=== PATIENT | male | born 1995 | race Caucasian/White ===

== ENCOUNTER 2018-02-19 04:43 | Emergency (ER) | payer OTHER ==
[2018-02-19] MEDS ORDERED: KETOROLAC 30 MG/ML 1 ML VIAL IVP STA (04:59)
[2018-02-19] MEDS ORDERED: SODIUM CHLORIDE 0.9% 1,000 ML IV STA (04:59)
[2018-02-19] MEDS ORDERED: MORPHINE SULFATE 2 MG/ML SYRINGE IV STA (04:59)
--- NOTE | 2018-02-19 05:05 | ED ---
General Adult HPI - General Source: patient, RN notes reviewed, old records reviewed Mode of arrival: wheelchair Limitations: no limitations <Dilip Troncoso - Last Filed: 02/19/18 06:42> <Batsheva Lai - Last Filed: 02/19/18 08:38> - General Chief complaint: Abdominal Pain Stated complaint: Kidney stone Time Seen by Provider: 02/19/18 04:53 - History of Present Illness Initial comments: 22-year-old male presents with sudden onset left flank pain and urinary urgency. Patient does have history of kidney stones. Last kidney stone was approximately 3 years prior. Patient denies any preceding symptoms. He was feeling well prior to this sudden onset pain. His had multiple episodes of nausea and vomiting. No changes to his bowels. Denies any abdominal pain. No history of fever or chills. No testicular pain. (Dilip Troncoso) - Related Data Previous Rx's Medication Instructions Recorded HYDROcodone/APAP 5-325MG [[place] 1 tab PO Q8H PRN 3 Days #10 tab 02/19/18 5-325] Metoclopramide [Reglan] 10 mg PO Q8H PRN #10 tab 02/19/18 Allergies Allergy/AdvReac Type Severity Reaction Status Date / Time No Known Allergies Allergy Verified 02/19/18 07:46 Review of Systems ROS Other: All systems not noted in ROS Statement are negative. <Dilip Troncoso - Last Filed: 02/19/18 06:42> ROS Other: All systems not noted in ROS Statement are negative. <Batsheva Lai - Last Filed: 02/19/18 08:38> ROS Statement: Those systems with pertinent positive or pertinent negative responses have been documented in the HPI. Past Medical History Additional Past Medical History / Comment(s): kidney stones History of Any Multi-Drug Resistant Organisms: None Reported Past Surgical History: No Surgical Hx Reported Past Psychological History: No Psychological Hx Reported Smoking Status: Never smoker Past Alcohol Use History: None Reported Past Drug Use History: None Reported <Dilip Troncoso - Last Filed: 02/19/18 06:42> General Exam Limitations: no limitations General appearance: alert, in no apparent distress Head exam: Present: atraumatic, normocephalic Eye exam: Present: normal appearance, PERRL, EOMI ENT exam: Present: normal exam Neck exam: Present: normal inspection. Absent: tenderness, meningismus Respiratory exam: Present: normal lung sounds bilaterally. Absent: respiratory distress, wheezes Cardiovascular Exam: Present: regular rate, normal rhythm GI/Abdominal exam: Present: soft. Absent: distended, tenderness, guarding Extremities exam: Present: normal inspection, normal capillary refill Back exam: Present: CVA tenderness (L) Neurological exam: Present: alert, oriented X3, CN II-XII intact. Absent: motor sensory deficit Psychiatric exam: Present: normal affect Skin exam: Present: warm, dry, intact. Absent: cyanosis, diaphoretic <Dilip Troncoso - Last Filed: 02/19/18 06:42> Course <Dilip Troncoso - Last Filed: 02/19/18 06:42> <Batsheva Lai - Last Filed: 02/19/18 08:38> Vital Signs 02/19/18 02/19/18 02/19/18 04:45 06:08 08:09 Temperature 97 F L 97.4 F L Pulse Rate 85 53 L 79 Respiratory 20 18 18 Rate Blood Pressure 153/82 119/58 112/68 O2 Sat by Pulse [address] of the abdomen reviewed, noticed a millimeter stone obstructive at the ureterovesical junction, patient is complaining about painful turning more pain meds and hopefully he'll pass the stone Reassessed again at 8:30, he feels better him he be gone home on Flomax and 4 mg by mouth daily for next 10 days and [place] 571 tablet 3 times a day as needed #10 but return to the ER if symptoms get worse (Batsheva aLi) - Reevaluation(s) Reevaluation #1: 02/19/18 0700 Patient's care is signed out to Dr. Lai at shift change awaiting CT results. 02/19/18 06:43 (Dilip Troncoso) Medical Decision Making - Lab Data Result diagrams: 02/19/18 05:24 02/19/18 05:24 <Dilip Troncoso - Last Filed: 02/19/18 06:42> - Lab Data Result diagrams: 02/19/18 05:24 07/11/18 05:24 <Brook Laier - Last Filed: 02/19/18 08:38> - Lab Data Lab Results 02/19/18 02/19/18 02/19/18 Range/Units 05:24 05:24 06:24 WBC 6.7 (3.8-10.6) k/uL RBC 4.78 (4.30-5.90) m/uL Hgb 14.2 (13.0-17.5) gm/dL Hct 42.3 (39.0-53.0) % MCV 88.5 (80.0-100.0) fL MCH 29.8 (25.0-35.0) pg MCHC 33.6 (31.0-37.0) g/dL RDW 13.1 (11.5-15.5) % Plt Count 231 (150-450) k/uL Neutrophils % 50 % Lymphocytes % 37 % Monocytes % 7 % Eosinophils % 3 % Basophils % 0 % Neutrophils # 3.3 (1.3-7.7) k/uL Lymphocytes # 2.5 (1.0-4.8) k/uL Monocytes # 0.5 (0-1.0) k/uL Eosinophils # 0.2 (0-0.7) k/uL Basophils # 0.0 (0-0.2) k/uL Sodium 139 (137-145) mmol/L Potassium 3.7 (3.5-5.1) mmol/L Chloride 103 (98-107) mmol/L Carbon Dioxide 25 (22-30) mmol/L Anion Gap 11 mmol/L BUN 19 (9-20) mg/dL Creatinine 0.80 (0.66-1.25) mg/dL Est GFR (CKD-EPI)AfAm >90 (>60 ml/min/1.73 sqM) Est GFR (CKD-EPI)NonAf >90 (>60 ml/min/1.73 sqM) Glucose 143 H (74-99) mg/dL Calcium 9.5 (8.4-10.2) mg/dL Total Bilirubin 0.3 (0.2-1.3) mg/dL AST 28 (17-59) U/L ALT 56 (21-72) U/L Alkaline Phosphatase 49 (38-126) U/L Total Protein 6.8 (6.3-8.2) g/dL Albumin 4.5 (3.5-5.0) g/dL Lipase 630 H (23-300) U/L Urine Color Yellow Urine Appearance Clear (Clear) Urine pH 6.0 (5.0-8.0) Ur Specific Elizabeth 1.020 (1.001-1.035) Urine Protein Trace H (Negative) Urine Glucose (UA) Trace H (Negative) Urine Ketones Negative (Negative) Urine Blood Large H (Negative) Urine Nitrite Negative (Negative) Urine Bilirubin Negative (Negative) Urine Urobilinogen <2.0 (<2.0) mg/dL Ur Leukocyte Esterase Negative (Negative) Urine RBC >182 H (0-5) /hpf Urine WBC 2 (0-5) /hpf Ur Squamous Epith Cells <1 (0-4) /hpf Hyaline Casts 1 (0-2) /lpf Urine Mucus Few H (None) /hpf Disposition <Dilip Troncoso - Last Filed: 02/19/18 06:42> Is patient prescribed a controlled substance at d/c from ED?: Yes <Batsheva Lai - Last Filed: 02/19/18 08:38> Clinical Impression: Ureteric calculus Disposition: HOME SELF-CARE Condition: Good Instructions: Ureteral Stones (ED) Prescriptions: HYDROcodone/APAP 5-325MG [[place] 5-325] 1 tab PO Q8H PRN 3 Days #10 tab PRN Reason: Pain Metoclopramide [Reglan] 10 mg PO Q8H PRN #10 tab PRN Reason: Nausea Referrals: Anastacio Rivera DO [Primary Care Provider] - 1-2 days
[2018-02-19 05:39] LABS: Basophils % (A) 0 %; Eosinophils # (A) 0.2 k/uL (0-0.7); Eosinophils % (A) 3 %; HCT 42.3 % (39.0-53.0); HGB 14.2 gm/dL (13.0-17.5); Lymphocytes # (A) 2.5 k/uL (1.0-4.8); Lymphocytes % (A) 37 %; MCH 29.8 pg (25.0-35.0); MCHC 33.6 g/dL (31.0-37.0); MCV 88.5 fL (80.0-100.0); Mean Platelet Volume 8.6; Monocytes # (A) 0.5 k/uL (0-1.0); Monocytes % (A) 7 %; Neutrophils # (A) 3.3 k/uL (1.3-7.7); Neutrophils % (A) 50 %; Platelet Count 231 k/uL (150-450); RBC 4.78 m/uL (4.30-5.90); RDW 13.1 % (11.5-15.5); WBC 6.7 k/uL (3.8-10.6)
[2018-02-19 05:49] LABS: ALT 56 U/L (21-72); AST 28 U/L (17-59); Albumin 4.5 g/dL (3.5-5.0); Alkaline Phosphatase 49 U/L (38-126); Anion Gap 11 mmol/L; Blood Urea Nitrogen 19 mg/dL (9-20); Calcium 9.5 mg/dL (8.4-10.2); Carbon Dioxide 25 mmol/L (22-30); Chloride 103 mmol/L (98-107); Glucose 143 mg/dL (74-99); Lipase 630 U/L (23-300); Potassium 3.7 mmol/L (3.5-5.1); Sodium 139 mmol/L (137-145); Total Bilirubin 0.3 mg/dL (0.2-1.3); Total Protein 6.8 g/dL (6.3-8.2)
--- NOTE | 2018-02-19 06:01 | XR ---
EXAM: XR Abdomen, 1 View CLINICAL HISTORY: ITS.REASON XR Reason: abdominal pain TECHNIQUE: Frontal supine view of the abdomen/pelvis. COMPARISON: No relevant prior studies available. FINDINGS: Intraperitoneal space: No abnormal calcification in the abdomen. No abnormal calcification in the pelvis. Gastrointestinal tract: No focal small bowel dilatation. Scattered gas filled bowel loops. Bones/joints: Unremarkable. IMPRESSION: No radiopaque renal calculus. Nonspecific bowel gas pattern
[2018-02-19 06:09] VITALS: RESP 18
[2018-02-19 06:38] LABS: Appearance,Urine Clear (Clear); Bilirubin,Urine Negative (Negative); Blood,Urine Large (Negative); Color,Urine Yellow; Glucose,Urine (UA) Trace (Negative); Hyaline Casts,Urine 1 /lpf (0-2); Ketones,Urine Negative (Negative); Leukocyte Esterase,Urine Negative (Negative); Mucus,Urine Few /hpf; Nitrite,Urine Negative (Negative); Protein,Urine Trace (Negative); RBC,Urine >182 /hpf (0-5); Squamous Epithelial Cell,Urine <1 /hpf (0-4); Urobilinogen,Urine <2.0 mg/dL (<2.0); WBC,Urine 2 /hpf (0-5)
--- NOTE | 2018-02-19 07:17 | CT ---
EXAMINATION TYPE: CT abdomen pelvis wo con DATE OF EXAM: 02/19/2018 COMPARISON: Radiograph same day HISTORY: 22-year-old male Lt side pain CT DLP: 318.6 mGycm. Automated exposure control for dose reduction was used. TECHNIQUE: Contiguous axial scanning of the abdomen and pelvis without IV contrast. Coronal and sagit yan reconstructions performed. FINDINGS: Heart normal size without pericardial effusion. Lung bases clear without pleural effusion. Small hiatal hernia. Noncontrast appearance of the liver, gallbladder, adrenal glands, spleen with small anterior splenule , and pancreas shows no gross abnormality. There are presently 5 punctate 1 to 2 mm nonobstructive calculi in the right kidney. A couple punctate 2 mm nonobstructive calculi in the left kidney best seen on coronal series. There is a 3 mm calculus at the left UVJ with very mild asymmetry left ureteral dilatation and mild l eft-sided pelvocaliectasis. Scattered nonenlarged mesenteric lymph nodes are present. No dilated small bowel, free fluid, or free air. Mild overall stool burden. No pericolonic inflammatory change. Bladder nondistended. No abnormal fluid collection in the pelvis or pelvic lymphadenopathy. Bones: No osseous destructive process. IMPRESSION: 1. A 3 mm calculus at the left UVJ with very mild obstructive uropathy. 2. Numerous punctate 1 to 2 mm nonobstructive calculi in both kidneys. 3. Small hiatal hernia.
[2018-02-19] MEDS ORDERED: MORPHINE SULFATE 2 MG/ML SYRINGE IVP PRN (07:35)
[2018-02-19] MEDS ORDERED: SODIUM CHLORIDE 0.9% 1,000 ML IV ONE (07:37)
[2018-02-19 08:10] VITALS: BP 112/68; PULSE 79; TEMP 97.4
== END 2018-02-19 08:45 | disposition home or self-care (01) ==
LOC: EC 04:43
DX: N20.2 Calculus of kidney with calculus of ureter (principal); N13.9 Obstructive and reflux uropathy, unspecified
CPT/HCPCS: 99285; 96374; 96375; 96376; 96361 ×2; 36415; 80053; 83690; 85025; 81001; 74018; 74176; J1885; J2270

== ENCOUNTER 2021-04-21 20:26 | Emergency (ER) | payer OTHER, BC ==
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
--- NOTE | 2021-04-21 22:04 | XR ---
EXAMINATION TYPE: XR shoulder complete LT DATE OF EXAM: 04/21/2021 COMPARISON: NONE HISTORY: Pain TECHNIQUE: 3 views FINDINGS: There is no sign of fracture nor dislocation. Joint spaces are normal. There are no patholo gic calcifications. IMPRESSION: Negative left shoulder exam.
[2021-04-21 23:09] VITALS: BP 128/87; PULSE 92; RESP 16; TEMP 98.1
== END 2021-04-21 23:08 | disposition home or self-care (01) ==
LOC: EC 20:26
DX: S43.402A Unspecified sprain of left shoulder joint, initial encounter (principal); V89.2XXA Person injured in unspecified motor-vehicle accident, traffic, initial encounter; Y92.410 Unspecified street and highway as the place of occurrence of the external cause
CPT/HCPCS: 99284